=== PATIENT | male | born 1995 | race Caucasian/White ===

== ENCOUNTER 2017-09-26 15:54 | Emergency (ER) | payer MEDICAID, SELFPAY ==
[2017-09-26 16:03] VITALS: BP 136/75; PULSE 102; RESP 16; TEMP 36.8; O2SAT 97
--- NOTE | 2017-09-26 16:24 | ED.GENADUL ---
Disposition Clinical Impression: Chest wall pain, Wheezing Disposition: HOME Condition: Stable Instructions: Wheezing (ED) Additional Instructions: your symptoms could be from smoking and drinking alcohol. Trying to abstrain from these should help your symptoms follow up with your primary care provider within 1-2 weeks if you have severe worsening of pain or difficulty breathing return to the emergency department Medical Decision Making - Medical Decision Making Pt here with 1 month of intermittent shortness of breath. I suspect he may have some RAD given his wheezing and smoking, and used to use an inhaler. His work of breathing is not significant, will treat with inhaler and reassess. no fevers or cough so dobut pna, and otherwise normal lungs so do not feel xray indicated for pna or ptx .Has no evidence of dvt or hypoxia so doubt PE. His chest wall pain seems musculoskeletal in nature, heart score is 0, do not feel any workup for this indicated at this time given pain is reproducible, no pain with exertion, no diaphoresis, no n/v or radiation of pain pt feels better after using inhaler and wheezing is gone. Will d/c with inhaler, advised f/u with pcp and return precautions given - Differential Diagnosis chest wall pain, asthma, uri History of Present Illness - General Chief complaint: SOB Stated complaint: SOB Time Seen by Provider: 09/26/17 16:13 Source: patient Mode of arrival: ambulatory Limitations: no limitations - History of Present Illness Initial comments: 22 yo male with no chronic medical problems, smoker, who comes in with chief complaint of intermittent shortness of breath and left anterior chest pain with palpation. he denies fevers, chills, and has no pain now unless I push on his left pectoral muscle. He denies any recent immobilization. He has no leg swelling or calf pain or jvd. He is speaking in full sentences on exam and has mild wheezing at the apices bilaterally otherwise normal exam. Denies pain with deep breaths per pt. 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 He is concerned his symptoms could be due to alcohol as he has been drinking like a fish recently. Has no evidence of withdrawal on exam, I educated him on limiting alcohol consumption Complaint: shortness of breath Onset/Timin -: month(s) Consistency: intermittent Improves with: none Worsens with: none Treatments Prior to Arrival: none - Related Data Unknown [No Known Home Meds] 09/26/17 Allergies Allergy/AdvReac Type Severity Reaction Status Date / Time No Known Allergies Allergy Unverified 09/26/17 16:06 Review of Systems Constitutional: denies: fever Respiratory: shortness of breath Cardiovascular: chest pain Gastrointestinal: denies: abdominal pain, nausea, vomiting Musculoskeletal: denies: back pain Skin: denies: rash Comment: All other systems reviewed and negative Past Medical History - Past Medical History Medical history: no medical history Surgical history: other (RIH repair) - Social History Smoking status: current everyday smoker Alcohol use: occasionally Drug use: marijuana General Exam - General Limitations: no limitations General appearance: alert, in no apparent distress - Head Head exam: Present: atraumatic - Eye Eye exam: Present: normal apperance - ENT ENT exam: Present: mucous membranes moist - Neck Neck exam: Present: normal inspection - Respiratory Respiratory exam: Present: wheezes. Absent: respiratory distress, accessory muscle use - Cardiovascular Cardiovascular Exam: Present: regular rate, normal rhythm, normal heart sounds - GI/Abdominal GI/Abdominal exam: Present: soft. Absent: tenderness - Extremities Exam Extremities exam: Present: normal inspection. Absent: pedal edema - Neurological Exam Neurological exam: Present: alert, oriented X3 - Psychiatric Psychiatric exam: Present: normal affect - Skin Skin exam: Present: warm Course Vital Signs - 24 hr 09/26/17 16:03 Temperature 98.2 F Pulse 102 H Respiratory 16 Rate Blood Pressure 136/75 Pulse Oximetry 97
[2017-09-26] MEDS: Inhaler, Assist Device MC (16:29)
[2017-09-26] MEDS: Albuterol HFA 8 GM 60 PUFF INH IH (16:29)
[2017-09-26 17:10] VITALS: BP 136/75; PULSE 102; RESP 16; TEMP 36.8; O2SAT 97
== END 2017-09-26 17:10 | disposition home or self-care (01) ==
LOC: ER 11-10 09:55
PROVIDERS: Emergency Provider Emergency Medicine
DX: R07.89 Other chest pain (principal); R06.2 Wheezing
CPT/HCPCS: 93005; 99284; 93010; 99283

== ENCOUNTER 2018-12-07 16:15 | Outpatient (REF) | payer MEDICAID, SELFPAY ==
[2018-12-07 19:29] LABS: HGB 15.6 g/dL (13.5-17.5); Mean Corp. HGB Concentration 33.9 g/dL (32.0-36.0); Mean Corpuscular Hemoglobin 30.2 pg (27.0-33.0); Mean Platelet Volume 11.1 fL (8.0-11.0); Platelet Count 362 x1000/uL (130-400); RBC 5.17 m/cumm (4.50-6.00); RBC Distribution Width 12.7 % (11.8-14.1); White Blood Cell Count 6.69 k/cumm (4.4-10.8)
[2018-12-07 19:46] LABS: ALT 35 U/L (16-63); AST 20 U/L (15-37); Albumin 5.2 g/dL (3.4-5.0); Alkaline Phosphatase 77 U/L (46-116); Anion Gap 12.8 mmol/L (3-11); BUN 12 mg/dL (7-18); Bilirubin, Total 1.2 mg/dL (0.2-1.0); CO2 27.2 mmol/L (21.0-32.0); CREATININE 1.22 mg/dL (0.70-1.30); Calcium 9.9 mg/dL (8.5-10.1); Chloride 100 mmol/L (98-107); Glucose 93 mg/dL (70-100); Sodium 140 mmol/L (136-145); Total Protein 8.7 g/dL (6.4-8.2)
[2018-12-09 09:50] LABS: Syphilis Serology (RPR) Negative (Negative)
[2018-12-09 11:34] LABS: Hepatitis B Surface Ag Negative (NEGAT)
[2018-12-09 11:46] LABS: HBs Antibody, Quant <3.1 mIU/mL; Hepatitis B Surface Ab Negative
[2018-12-09 11:57] LABS: HIV-1/2 Ag & Ab Screen Negative (NEGAT)
[2018-12-09 12:04] LABS: Hepatitis C Ab w Rflx HCV PCR Negative (NEGAT)
[2018-12-09 13:28] LABS: Hep A Antibody IgM Negative (NEGAT)
[2018-12-09 15:08] LABS: Chlamydia Result Negative; GC Result Negative; Specimen Description URINE
[2018-12-10 09:58] LABS: IgA 236 mg/dL (85-499); Interpretation SEE COMMENTS; Tissue Transglutaminase IgA <1.2 U/mL (<4.0)
== END 2018-12-07 16:35 ==
LOC: NCHCN 16:15
PROVIDERS: Visit Provider Nurse Practitioner Family
DX: Z11.3 Encounter for screening for infections with a predominantly sexual mode of transmission (principal); Z11.59 Encounter for screening for other viral diseases; Z11.4 Encounter for screening for human immunodeficiency virus [HIV]
CPT/HCPCS: 80053; 82784; 83516; 85027; 86706; 86709; 86803; 87340; 87389; 87491; 87591; 86592

== ENCOUNTER 2019-01-16 15:20 | Emergency (ER) | payer MEDICAID, SELFPAY ==
[2019-01-16 15:24] VITALS: BP 152/85; PULSE 75; RESP 16; TEMP 36.6; O2SAT 97
--- NOTE | 2019-01-16 16:18 | ED.GENADUL_ITS ---
Discharge Plan Disposition Patient Disposition: HOME Condition: Stable Discharge Details Chief Complaint: Nk/Back Pain Clinical Impression: Acute thoracic myofascial strain Primary Care Provider: Fredy Rendon ED Provider: Vasiliy Ward Home Meds and New Rx's Prescriptions: No Action fluoxetine [Prozac] 20 mg Capsule 20 mg PO DAILY RF: 0 Discharge Instructions Instructions: Muscle Strain (ED) Additional Instructions: 1. Drink plenty of fluids. 2. Continue all medications as prescribed. 3. Acetaminophen 1000mg every 4 hours (up to 5 time a day) and/or ibuprofen 600 mg every 6 hours as needed for fever or pain. 4. Ice sore area frequently. 5. Activity as tolerated. Return to the Emergency Department (ED) if your condition worsens, does not improve as expected, or for ANY other concerns. Specifically, return if you have new or uncontrolled pain, worsening fever, difficulty breathing, vomiting, or are unable to drink fluids. Discharge Data Discharge Date/Time-TO BE ENTERED AT DEPARTURE: 01/16/19 15:40 Medical Decision Making Presents with focal, persistent upper thoracic back pain associated with wrestling yesterday. Had no significant blunt force trauma to the region and describes a mechanism of head, cervical, and upper thoracic flexion. Exam was sent for minimal point tenderness at the spinous process and then right soft tissue. Discussed low likelihood of clinically significant bony injury with possible spinous process fracture. Discussed that management for most injuries like this are treated conservatively and that imaging would not microsoft exchange architect. Discharged with a plan for OTC analgesia, ice, activity as tolerated, and follow-up as needed. Given usual and customary return instructions prior to discharge. Medical Records Medical records reviewed: Yes I reviewed the patient's medical records. HPI 23-year-old with a history of orthopedic injuries including thoracic back injury from playing football presents with acute upper thoracic back pain associated with him messing with his friend yesterday afternoon. According to the patient, he was wrestling with his friend and had his neck/cervical spine hyperflexed. He later noted increased pain in his upper thoracic region radiating towards his right back. He denies any other significant trauma. He has had no loss of motion or sensation in his extremities. He denies focal extremity weakness or change in bowel/bladder habits. General Date/Time Provider Initiated Documentation: 01/16/19 15:40 . Related Data Home Medications Medication Instructions Recorded Confirmed fluoxetine [Prozac] 20 mg PO DAILY 01/16/19 01/16/19 Allergies Allergy/AdvReac Type Severity Reaction Status Date / Time No Known Allergies Allergy Unverified 01/16/19 15:27 General Stated Complaint: Nk/Back Pain DINA: 5 Review of Systems All systems reviewed & are unremarkable except as noted in HPI and below PFSH Medical History ACL tear Hyperhydrosis disorder Surgical History Repair, ACL (~2012) right inguinal hernia repair with mesh (12/17/16) Family History Father Congenital heart defect aorta is twisted around his esophagus - since Social History Smoking/Tobacco Use Status: Never Alcohol Intake: current Alcohol Intake frequency: a few times a week Drug use: Occasionally Substance use type: marijuana Do you feel safe at home: Yes Do you feel safe in your relationship?: Yes Exam Narrative Exam Narrative: Nursing note and vital signs have been reviewed and noted. GENERAL: alert, active, no acute distress, well -hydrated, well-nourished HEENT: atraumatic/normocephalic, PERRLA, EOMI, conjunctiva clear, external ears/canals normal, nasal mucosa normal NECK: supple, full range of motion CARDIOVASCULAR: nl pulses, no edema PULMONARY: nl effort, no audible wheezing or stridor ABDOMEN: non-distended EXTREMITY: normal muscle tone, all joints with FROM, no deformity NUERO: normal mentation, moving all extremities, normal stance and gait, PSYCH: alert and oriented SKIN: no new rashes or lesions BACK: Minimal midline tenderness at T1/2 with mild right-sided paraspinal soft tissue tenderness. Normal full neurological exam with no upper or lower extremity weakness. Course Vital Signs Vital signs: Vital Signs Temperature 97.9 F 01/16/19 15:24 Pulse 75 01/16/19 15:24 Respiratory Rate 16 01/16/19 15:24 Blood Pressure 152/85 H 01/16/19 15:24 Pulse Oximetry 97 01/16/19 15:24 Temperature 97.9 F 01/16/19 15:24 Temperature Source Temporal Artery Scan 01/16/19 15:24 Pulse 75 01/16/19 15:24 Respiratory Rate 16 01/16/19 15:24 Respiratory Effort Non-Labored 01/16/19 15:24 Blood Pressure 152/85 H 01/16/19 15:24 Blood Pressure Position Sitting 01/16/19 15:24 Pulse Oximetry 97 01/16/19 15:24 Oxygen Delivery Method Room Air 01/16/19 15:24 Oxygen Flow Rate 0 01/16/19 15:24 Pain Level 6 01/16/19 15:24 Comment 01/16/19 15:24
== END 2019-01-16 15:40 | disposition home or self-care (01) ==
LOC: ER 15:47
PROVIDERS: Emergency Provider Emergency Medicine; PCP Nurse Practitioner Family
DX: S29.012A Strain of muscle and tendon of back wall of thorax, initial encounter (principal); X50.9XXA Other and unspecified overexertion or strenuous movements or postures, initial encounter; Y93.83 Activity, rough housing and horseplay
CPT/HCPCS: 99282; 99283

== ENCOUNTER 2019-04-05 14:56 | Emergency (ER) | payer SELFPAY ==
[2019-04-05 15:00] VITALS: BP 166/81; PULSE 138; RESP 20; TEMP 36.5; O2SAT 98
--- NOTE | 2019-04-05 15:00 | DI.US_ITS ---
EXAM: US SCROTUM CLINICAL HISTORY: trauma during intercourse, scrotal swelling, bruis TECHNIQUE: Ultrasound performed using standard protocol. COMPARISON: SOFT TISSUE EXT US LIMITED from 07/17/2015 FINDINGS: Scrotal ultrasound was performed according to the usual protocol. Scanning of the penile shaft shows no gross disruption of the tissue planes. And no abnormal fluid collection. No significant hydroce le. Normal appearance of the testes bilaterally with symmetrical intra testicular vascular flow. Th e epididymi are unremarkable in appearance. IMPRESSION: Normal scrotal ultrasound. DATA REPOSITORY:
--- NOTE | 2019-04-05 15:19 | ED.GENADUL_ITS ---
Discharge Plan Disposition Patient Disposition: HOME Condition: Good Discharge Details Chief Complaint: GenMedical Clinical Impression: Bruising of penis, Bruise of scrotum Primary Care Provider: Fredy Rendon ED Provider: Allan Greene Home Meds and New Rx's Prescriptions: No Action No Known Home Meds RF: 0 Discharge Instructions Additional Instructions: At this time there is no evidence of fracturing of your penis. I suspect that you had 1 of the superficial veins that ruptured which caused all the bruising. I would recommend abstaining from any intercourse for the next 1 to 2 weeks to allow for the swelling and bruising to resolve. Please avoid any intercourse during this time. Please follow-up closely with the urologist for reassessment. If you notice any worsening of your symptoms, or any new symptoms such as blood in your urine, blood with ejaculating, worsening pain swelling or bruising in your scrotum or testicles, vomiting, diarrhea, fever, chills, shortness of breath, chest pain, numbness, weakness, or fainting , please return immediately to the emergency department for reevaluation. Please follow up with your primary care provider as soon as possible for reassessment and reevaluation. As always, it was a pleasure participating in your medical care today. Referrals: Curly Linn MD [ [facility] STAFF PHYSICIAN] - Fredy Rendon NP [Primary Care Provider] - Medical Decision Making 24-year-old male with no significant past medical history who presents today for evaluation of scrotal and penile pain. The patient states that 2 nights ago he was having intercourse with his significant other, slightly more vigorous than normal but certainly at the most vigorous he has been, during which point he feels he hit something hard, he did not hear a snap or a pop. He did have significant pain and noticed a small amount of bruising on the proximal penile shaft. He continued to have intercourse after this and did ejaculate without difficulty. Subsequently over the next day and a half leading up to today he has had swelling and notable bruising of his scrotum. He denies any pain or tenderness whatsoever for scrotum testicles or penis. He has had no erection since then, he states that the position was normal, with no atypical anatomical deviations, however he did state that it did not feel like it was as full as normal. He has denied any dysuria, hematuria, or other abnormalities. He has not ejaculated since the initial event. He denies any other complaints at this time. Past surgical history is positive for right inguinal hernia surgery. No other complaints at this time. He denies any history of STDs. Genital exam demonstrates normal penile shaft, no penile shaft tenderness whatsoever. There is a small amount of bruising at the very proximal base. No atypical deviation to the left or the right. No evidence of significant deformity. The patient's scrotum is mildly swollen, there is notable bruising throughout, testicles are nontender, minimally enlarged. Difficult to evaluate for cremasteric reflex secondary to scrotal swelling, however with no testicular pain, symptoms appearing consistent with torsion. No inguinal herniation. No other abnormalities on exam. No urethral discharge, no swelling or bruising at the meatus or the penile head. With the patient's ability to have a repeat erection, with no evidence of penile or scrotal tenderness his symptoms appear inconsistent with significant penile fracture or testicular torsion, however the bruising is notable, and his symptoms are typical. Will get scrotal ultrasound for further evaluation and contact urology/Dr. Linn. Currently he has no pain and does not want anything for pain. Urinalysis is negative for blood. 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 4:12 PM Ultrasound shows no evidence of penile rupture or significant free fluid. No evidence of significant epididymitis or other abnormality. Signs and symptoms are likely secondary to a superficial vessel that ruptured during the slightly more vigorous intercourse. With no pain whatsoever in his testicle scrotum or penis, no evidence of significant deformity I feel that he can be safely discharged home as his symptoms are inconsistent with testicular torsion, epididymitis, or penile fracture. I did discuss the case with Dr. Linn, he does recommend follow-up with urology but has no other recommendations at this time. Discussed red flags which to return, the importance of pelvic rest. I have extensively reviewed the treatment plan and discharge instructions with the patient. I have addressed all patient concerns at this time. The patient was made aware of what symptoms to monitor for that would warrant a return to the emergency department. Discussed the plan with the patient, they demonstrate verbal understanding and agreement with our assessment and plan at this time. FINDINGS: Scrotal ultrasound was performed according to the usual protocol. Scanning of the penile shaft shows no gross disruption of the tissue planes. And no abnor mal fluid collection. No significant hydrocele. Normal appearance of the testes bilaterally with symmetrical intra testicular vascular flow. The epididymi are unremarkable in appearance. IMPRESSION: Normal scrotal ultrasound. HPI General Date/Time Provider Initiated Documentation: 04/05/19 15:04 . HPI Narrative: 24-year-old male with no significant past medical history who presents today for evaluation of scrotal and penile pain. The patient states that 2 nights ago he was having intercourse with his significant other, slightly more vigorous than normal but certainly at the most vigorous he has been, during which point he feels he hit something hard, he did not hear a snap or a pop. He did have significant pain and noticed a small amount of bruising on the proximal penile shaft. He continued to have intercourse after this and did ejaculate without difficulty. Subsequently over the next day and a half leading up to today he has had swelling and notable bruising of his scrotum. He denies any pain or tenderness whatsoever for scrotum testicles or penis. He has had no erection since then, he states that the position was normal, with no atypical anatomical deviations, however he did state that it did not feel like it was as full as normal. He has denied any dysuria, hematuria, or other abnormalities. He has not ejaculated since the initial event. He denies any other complaints at this time. Past surgical history is positive for right inguinal hernia surgery. No other complaints at this time. He denies any history of STDs. Related Data Home Medications Medication Instructions Recorded Confirmed Unknown [No Known Home Meds] 04/05/19 04/05/19 Allergies Allergy/AdvReac Type Severity Reaction Status Date / Time No Known Allergies Allergy Unverified 04/05/19 15:03 General Stated Complaint: GenMedical DINA: 3 Review of Systems All systems reviewed & are unremarkable except as noted in HPI and below [facility] Social History Smoking/Tobacco Use Status: Never Alcohol Intake: current Alcohol Intake frequency: a few times a week Drug use: Occasionally Substance use type: marijuana Do you feel safe at home: Yes Do you feel safe in your relationship?: Yes Exam Narrative Exam Narrative: 1.Const: Well-nourished, Well-developed, appearing stated age 2.Eyes: PERRL, no conjunctival injection, and symmetrical lids. 3.ENT: Atraumatic external nose and ears. Moist MM. Neck: Symmetric, trachea midline, No thyromegaly. 4.CVS: +S1/S2, No murmurs or gallops. Peripheral pulses 2+ and equal in all extremities. Brisk capillary refill in all extremities. 5.RESP: Unlabored respiratory effort. Clear to auscultation bilaterally. No wheezes rales or rhonchi 6.GI: Soft, Nontender/Nondistended, No hepatosplenomegaly. No guarding or rebound. Genital exam was performed with female nurse at bedside. Genital exam demonstrates normal penile shaft, no penile shaft tenderness whatsoever. There is a small amount of bruising at the very proximal base. No atypical deviation to the left or the right. No evidence of significant deformity. The patient's scrotum is mildly swollen, there is notable bruising throughout, testicles are nontender, minimally enlarged. Difficult to evaluate for cremasteric reflex secondary to scrotal swelling, however with no testicular pain, symptoms appearing consistent with torsion. No inguinal herniation. No other abnormalities on exam. No urethral discharge, no swelling or bruising at the meatus or the penile head. 7.MSK: Normocephalic/Atraumatic, Extremities w/o deformity or ttp No cyanosis or clubbing, Normal movement of all extremities 8.Skin: Warm, Dry. No rashes or lesions. 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 Sensation grossly intact, no focal neurologic deficits. 10.Psych: (AAO) x3. Appropriate mood and affect Course Vital Signs Vital signs: Vital Signs Temperature 36.5 C 04/05/19 15:00 Pulse 138 H 04/05/19 15:00 Respiratory Rate 04/05/19 15:00 Blood Pressure 166/81 H 04/05/19 15:00 Pulse Oximetry 98 04/05/19 15:00 Temperature 36.5 C 04/05/19 15:00 Temperature Source Skin 04/05/19 15: Pulse 138 H 04/05/19 15:00 Respiratory Rate 04/05/19 15:00 Blood Pressure 166/81 H 04/05/19 15:00 Blood Pressure Position Supine 04/05/19 15:00 Pulse Oximetry 98 04/05/19 15:00 Oxygen Delivery Method Room Air 04/05/19 15:00 Oxygen Flow Rate 0 04/05/19 15:00 Pain Level 4 04/05/19 15:00
[2019-04-05 15:21] LABS: Bilirubin Negative (Negative); Blood Negative (Negative); Clarity Clear (Clear); Glucose Negative (Negative); Ketones Negative (Negative); Leukocyte Esterase Negative (Negative); Nitrite Negative (Negative); Urobilinogen 0.2 EU/dL (Up TO 0.2)
[2019-04-05 16:17] VITALS: BP 129/71; PULSE 94; RESP 18; TEMP 36.7; O2SAT 96
== END 2019-04-05 16:20 | disposition home or self-care (01) ==
PROVIDERS: Emergency Provider Student in an Organized Health Care Education/Training Program; PCP Nurse Practitioner Family
DX: S30.21XA Contusion of penis, initial encounter (principal); S30.22XA Contusion of scrotum and testes, initial encounter; X50.9XXA Other and unspecified overexertion or strenuous movements or postures, initial encounter
CPT/HCPCS: 99284; 76870; 81003

== ENCOUNTER 2019-08-26 13:07 | Emergency (ER) | payer SELFPAY ==
--- NOTE | 2019-08-26 13:18 | ED.GENADUL_ITS ---
Discharge Plan Disposition Patient Disposition: HOME Condition: Stable Discharge Details Chief Complaint: GenMedical Clinical Impression: Concern about STD in male without diagnosis Primary Care Provider: Fredy Rendon ED Provider: Nitesh Joseph Home Meds and New Rx's Prescriptions: No Action No Known Home Meds RF: 0 Discharge Instructions Instructions: Sexually Transmitted Diseases (ED) Additional Instructions: At this time your urine culture, gonorrhea, chlamydia, herpes test are all pending. As we discussed they will likely be resulted in next 24-48 hours. I recommend refraining from all sexual contact until you have been reevaluated and cleared to return by your primary care provider. If your tests are positive you should receive a phone call for treatment. Otherwise I recommend reaching out your primary care provider later today for prompt outpatient reevaluation, I recommend a full STD panel as well. Please watch for new or worsening symptoms and return to the ER for any concerns Discharge Data Discharge Date/Time-TO BE ENTERED AT DEPARTURE: 08/26/19 14:55 Medical Decision Making 24-year-old gentleman who is currently asymptomatic presents as he would like to be tested for STDs. He reports that he had unprotected sex over the august weekend and was later told that his partner has a history of multiple partners. He denies any fever, abdominal pain, dysuria, hematuria, pain in his testicles or penile discharge. Upon further investigation he does report having a painless rash at the base of his glans after masturbating. We discussed herpes, this area is nontender without ulcers or vesicles. Not consistent with chancre. He has had this happen in the past after masturbating. He does not believe that he currently has an STD but would like to be tested. We will obtain a urinalysis, urine GC and chlamydia, herpes swab. We discussed prophylactic treatment for potential STD but patient reports that he does not want to take any medications that he does not need. Given he is asymptomatic, rash is not consistent with herpes, I believe this to be a reasonable plan however we discussed the importance of refraining from sexual contact until he has received the results of these test today, has had a full STD panel performed by his primary care provider, and has been cleared to return to sexual activity. Urine dip was unremarkable, so did not reflex to a microscopic. Given his presentation I did request a microscopic and a culture. Micro reveals 5-10 white blood cells, rare bacteria. Again, given he is asymptomatic, does not want any treatment at this time, will await any culture for potential treatment. Medical Records Medical records reviewed: Yes I reviewed the patient's medical records. Lab Data Lab results reviewed: Yes I reviewed the patient's lab results. Lab results narrative: 08/26/19 14:27 Urine - Voided Urine Culture - Pending Laboratory Tests Range/Units 08/26/19 08/26/19 13:29 14:27 Urine Color (Yellow) Yellow Urine Clarity (Clear) Clear Urine pH (5-8) 6.0 Ur Specific [place] (1.005-1.025) >= 1.030 H Urine Protein (Negative) mg/dL Negative Urine Ketones (Negative) mg/dL Trace H Urine Blood (Negative) Negative Urine Nitrite (Negative) Negative Urine Bilirubin (Negative) Negative Urine Urobilinogen (Up TO 0.2) EU/dL 0.2 Ur Leukocyte Esterase (Negative) Negative Urine RBC (0-2) HPF Negative Urine WBC (0-5) HPF 5-10 Ur Epithelial Cells (Negative) HPF Rare Urine Crystals (Negative) HPF Negative Urine Bacteria (Negative) HPF Rare Urine Casts (Negative) LPF Negative Urine Mucus (Negative) Moderate Urine Other (Negative) Rare renal Ur Culture Indicated? C&s done as ordered Urine Glucose (Negative) mg/dL Negative HPI General Mode of arrival: ambulatory . Date/Time Provider Initiated Documentation: 08/26/19 13:11 . Limitations to Documentation: no limitations . Information obtained by: patient . HPI Narrative: This is a 24-year-old gentleman who denies any significant past medical history. He reports that he had unprotected sex with a female around 12 August weekend, is essentially asymptomatic now but would like to be tested for STDs. He reports that he was told by multiple people that his partner over 12 August gets around. He denies any fever, nausea, vomiting abdominal pain, penile pain, penile discharge, scrotal pain, testicle pain. He does report a history of chlamydia 7 years ago. Upon further investigation he does admit to a rash on his penis but he believes that is secondary to masturbating, he has had that rash before. He denies the rash being tender or itchy. Related Data Home Medications Medication Instructions Recorded Confirmed Unknown [No Known Home Meds] 02/25/20 07/17/20 Allergies Allergy/AdvReac Type Severity Reaction Status Date / Time No Known Allergies Allergy Unverified 08/26/19 13:25 General DINA: 3 Review of Systems Constitutional Constitutional: Denies fever(s) Gastrointestinal Gastrointestinal: Denies abdominal pain, Denies nausea and Denies vomiting Genitourinary Genitourinary: Denies hematuria, Reports genital lesions, Denies genital pain, Denies dysuria, Denies penile discharge, Denies testicular pain and Denies urinary frequency Musculoskeletal Musculoskeletal: Denies back pain Integumentary/Breasts Skin/Breast: Reports rash Neurologic Neurologic: Denies paresthesias PFSH Medical History ACL tear Hyperhydrosis disorder Surgical History Repair, ACL (~2012) right inguinal hernia repair with mesh (12/17/16) Family History Father Congenital heart defect aorta is twisted around his esophagus - since Social History Smoking/Tobacco Use Status: Never Alcohol Intake: current Alcohol Intake frequency: a few times a week Drug use: Occasionally Substance use type: marijuana Do you feel safe at home: Yes Do you feel safe in your relationship?: Yes Exam Const General: cooperative, healthy appearing, comfortable and no acute distress Orientation: alert and awake HENMT Head: normal to inspection, normocephalic and atraumatic Mouth: moist mucous membranes Eyes Conjunctivae: conjunctivae normal Neck Neck: normal visual inspection, trachea midline and supple Resp Effort & Inspection: normal respiratory effort and able to speak in complete sentences Cardio Rate: regular rate Rhythm: regular rhythm GI Inspection: normal to inspection Palpation: soft and nontender Male General Exam: Yes other (Mild nontender macular erythema base of glans) Penis: no ulcerations and no vesicles Meatus: meatus normal Scrotum: scrotum normal Testes: normal, testicular lie normal and epididymides normal Back/Spine/Pelvis Back: No back tenderness Skin General skin exam: no rashes or lesions noted Neuro General: patient alert, patient awake, moves all extremities and no focal motor deficits Sensory Exam: no sensory deficits noted Psych Appearance: grossly normal Mental Status: mental status grossly normal
[2019-08-26 13:22] VITALS: BP 142/86; PULSE 105; RESP 14; TEMP 36.5; O2SAT 97
[2019-08-26 13:30] VITALS: RESP 16
[2019-08-26 13:35] LABS: Bilirubin Negative (Negative); Blood Negative (Negative); Clarity Clear (Clear); Glucose Negative (Negative); Ketones Trace mg/dL (Negative); Leukocyte Esterase Negative (Negative); Nitrite Negative (Negative); Specific Gravity >= 1.030 (1.005-1.025); Urobilinogen 0.2 EU/dL (Up TO 0.2)
[2019-08-26 14:46] LABS: Bacteria Rare HPF (Negative); C & S Indicated? C&S Done As Ordered; Casts Negative LPF (Negative); Crystals Negative HPF (Negative); Epithelial Cells Rare HPF (Negative); Mucus Moderate (Negative); Other Cells Rare Renal (Negative); RBC Negative HPF (0-2)
[2019-08-27 14:56] LABS: HSV 1 DNA Result Negative (Negative); HSV 2 DNA Result Negative (Negative)
[2019-08-29 14:52] LABS: GC Result Negative (Negative)
[2019-08-30 08:28] LABS: Chlamydia Result Positive (Negative)
== END 2019-08-26 14:55 | disposition home or self-care (01) ==
PROVIDERS: Emergency Provider Physician Assistant; PCP Nurse Practitioner Family
DX: R21 Rash and other nonspecific skin eruption (principal); A74.9 Chlamydial infection, unspecified; Z11.3 Encounter for screening for infections with a predominantly sexual mode of transmission
CPT/HCPCS: 87491; 87529; 87591; 99283; 81003; 81015; 87086

== ENCOUNTER → 2019-09-14 13:13 | Outpatient (REF) | payer SELFPAY ==
[2019-09-16 09:26] LABS: Hepatitis B Surface Ab Negative (See Note)
[2019-09-16 09:36] LABS: Hepatitis B Surface Ag Negative (Negative)
[2019-09-16 10:02] LABS: Hepatitis C Ab w Rflx HCV PCR Negative (Negative)
[2019-09-16 10:17] LABS: HIV-1/2 Ag & Ab Screen Negative (Negative)
[2019-09-16 10:45] LABS: Syphilis Serology (RPR) Negative (Negative)
== END ==
LOC: NCHCN 13:13
PROVIDERS: PCP Nurse Practitioner Family; Visit Provider Nurse Practitioner Family
DX: Z11.3 Encounter for screening for infections with a predominantly sexual mode of transmission (principal)
CPT/HCPCS: 86706; 86803; 87340; 87389; 86592